=== PATIENT | female | born 1960 | race Caucasian/White ===

== ENCOUNTER 2022-02-23 14:04 | Emergency (ER) | payer OTHER, SELFPAY ==
--- NOTE | 2022-02-23 14:38 | PC.NURSE ---
called pt back, no answer in WR. per registration, pt step out a few min ago.
== END 2022-02-23 15:11 | disposition left against medical advice (07) ==
PROVIDERS: Emergency Provider Emergency Medicine

== ENCOUNTER 2022-04-25 10:36 | Emergency (ER) | payer OTHER, SELFPAY ==
[2022-04-25 10:40] VITALS: BP 147/77; PULSE 80; RESP 15; TEMP 36; O2SAT 97; BMI 23.0
--- NOTE | 2022-04-25 13:47 | ED_ITS ---
HPI - Skin/Abscess/Foreign Bdy <Pierce Galeano PA-C - Last Filed: 04/25/22 14:58> General Chief complaint: Skin/Abscess/Foreign Body Stated complaint: Swelling & rash all over face Time Seen by Provider: 04/25/22 11:59 Source: patient Mode of arrival: Ambulatory Limitations: no limitations History of Present Illness HPI narrative: Patient is a 61-year-old female presents to the emergency room today with complaint redness and swelling to her face this started about 5 days ago. States she 1st noticed redness to start on the right side face around the cheek area that progressed to redness to her entire face yesterday. Last night at 3:00 a.m. she took 3 Benadryl that was given to her by a friend. She then noticed this morning that she had swelling but no below both eyes. Denies any chest pain shortness of breath fever chills nausea vomiting or GI concerns associated with this incident. Works as a patient service representative and can not discern any exposure to any new chemicals. There is a note recall at that using it new headache motion of chemicals the face. Also has never had this happen before. Related Data Previous Rx's Medication Instructions Recorded diphenhydramine HCl 25 mg tablet 25 mg PO TID PRN allergic reaction 04/25/22 (Allergy) #15 tabs prednisone 10 mg tablets in a dose 10 mg PO DAILY #15 ea 04/25/22 pack Allergies Allergy/AdvReac Type Severity Reaction Status Date / Time penicillamine Allergy Verified 04/25/22 10:40 Review of Systems <Pierce Galeano PA-C - Last Filed: 04/25/22 14:58> Review of Systems Narrative: R.O.S.: General: No fever, chills or fatigue. Cardiovascular: No chest pain or palpitations Respiratory: No S.O.B. HEENT: No congestion, ear pain, rhinorrhea, sore throat or tinnitus Gastrointestinal: No nausea or vomiting : No urinary concerns Skin: Redness and swelling to face. Musculoskeletal: No pain in muscles or joints, no limitation of range of motion, no paresthesia or numbness. ?? Neurological: Awake, alert and in not apparent distress. No Headaches, changes in vision or other related neurological concerns. Patient History <Pierce Galeano PA-C - Last Filed: 04/25/22 14:58> Social History Smoking Status: Current every day smoker Smoking Status: Current every day smoker tobacco type: vaping alcohol intake frequency: holidays/special occasions only Substance Use Type: does not use Exam <MARY Echols Last Filed: 04/25/22 14:58> Narrative Exam Narrative: Physical Exam: ? General: normal appearance, well developed, well nourished, alert, and awake. Not in acute distress. ? Head: Normocephalic, no lesions. Chest: Lungs CTAB, no rales, rhonchi or wheezes. ?? Heart: RRR, no murmurs, rubs or gallops. Eyes: PERRLA, EOM's full, conjunctivae clear. ? Neuro: Physiological, no localizing findings, CN3-12 intact. ?? Extremities: Warm, well perfused, FROM, no deformities, no edema. ?? Skin: The patient has diffuse erythema to the entire face. Patient also nontender some swelling to the inferior areas of both eyes. Erythema and swelling are all nontender. ? PSYCHIATRIC: The mood is good, no blunted affect. Speech is clear. Thought process is linear, thought content is appropriate. The voice is without significant inflection. Gastrointestinal: Soft; NT; ND; Pos BS with Neg. rebound tenderness. No scars or major deformities noted on Visual Inspection. Initial Vital Signs Initial Vital Signs: Vital Signs Temperature 96.8 F L 04/25/22 10:40 Pulse Rate 80 04/25/22 10:40 Respiratory Rate 15 04/25/22 10:40 Blood Pressure 147/77 H 04/25/22 10:40 Pulse Oximetry 97 04/25/22 10:40 Oxygen Delivery Method 04/25/22 10:40 <Uriah De La Torre DO - Last Filed: 04/25/22 15:14> Initial Vital Signs Initial Vital Signs: Vital Signs Temperature 96.8 F L 04/25/22 10:40 Pulse Rate 80 04/25/22 10:40 Respiratory Rate 15 04/25/22 10:40 Blood Pressure 147/77 H 04/25/22 10:40 Pulse Oximetry 97 04/25/22 10:40 Oxygen Delivery Method 04/25/22 10:40 Course <Pierce Galeano PA-C - Last Filed: 04/25/22 14:58> Orders Ordered: ED Orders 04/25/22 14:14 CBC Auto Diff [Complete Blood Count AUTO DIFF] Stat CMP [Comprehensive Metabolic Panel] Stat Vital Signs Vital signs: Vital Signs - 8 hr 04/25/22 10:40 Temperature 96.8 F L Pulse Rate 80 Respiratory Rate 15 Blood Pressure 147/77 H Pulse Oximetry 97 Oxygen Delivery Method Room Air <Uriah De La Torre DO - Last Filed: 04/25/22 15:14> Orders Ordered: ED Orders 04/25/22 14:14 CBC Auto Diff [Complete Blood Count AUTO DIFF] Stat CMP [Comprehensive Metabolic Panel] Stat Vital Signs Vital signs: Vital Signs - 8 hr 04/25/22 10:40 Temperature 96.8 F L Pulse Rate 80 Respiratory Rate 15 Blood Pressure 147/77 H Pulse Oximetry 97 Oxygen Delivery Method Room Air MDM - Skin/Abscess/Foreign Bdy <Pierce Galeano PA-C - Last Filed: 04/25/22 14:58> Lab Data Result diagrams: 04/25/22 14:14 04/25/22 14:14 Labs: Lab Results 04/25/22 04/25/22 Range/Units 14:14 14:14 WBC 4.8 (4.5-11.0) X10^3/uL RBC 3.66 L (4.0-5.2) X10^6/uL Hgb 13.4 (12.0-16.0) g/dL Hct 38.7 (36-46) % MCV 105.7 H (80-100) fL MCH 36.6 H (26-34) PG MCHC 34.6 (30-36) % RDW 12.5 (11.6-14.8) % Plt Count 230 (150-400) X10^3/uL Neut % (Auto) 43.8 L (50-75) % Lymph % (Auto) 43.5 H (25-40) % [place] % (Auto) 10.5 (3-14) % Eos % (Auto) 1.5 L (2-4) % Baso % (Auto) 0.7 (0-2) % Neut # (Auto) 2100 (1122-6558) /uL Lymph # (Auto) 2100 (6408-6208) /uL [place] # (Auto) 500 (0-900) /uL Eos # (Auto) 100 (0-450) /uL Baso # (Auto) 0 (0-100) /uL Sodium 142 (137-145) mmol/L Potassium 4.3 (3.4-5.1) mmol/L Chloride 102 (98-107) mmol/L Carbon Dioxide 25 (22-32) mmol/L BUN 11 (7-17) mg/dL Creatinine 0.46 L (0.52-1.04) mg/dL Estimated GFR > 60 (>60) mL/min BUN/Creatinine Ratio 23.9 H (6-22) Glucose 97 (70-100) mg/dL Calcium 9.2 (8.4-10.2) mg/dL Total Bilirubin 0.4 (0.2-1.3) mg/dL AST 86 H (14-36) IU/L ALT 66 H (<35) IU/L Alkaline Phosphatase 102 (38-126) U/L Total Protein 8.3 H (6.3-8.2) g/dL Albumin 4.9 (3.5-5.0) g/dL Globulin 3.4 (1.7-4.1) g/dL Albumin/Globulin Ratio 1.4 (1.0-2.8) Urine Dip Bedside Urine Glucose Negative Bedside Urine Bilirubin - Negative Bedside Urine Ketone - Negative Urine Specific [place] 1.015 Bedside Urine Occult Blood - Negative Bedside Urine pH 6.0 Bedside Urine Protein - Negative Bedside Urine Urobilinogen - Negative Bedside Urine Nitrite - Negative Bedside Urine Leukocytes - Negative Esterase MDM Narrative Medical decision making narrative: Patient is a 61-year-old female presents to the emergency room today with comp laint redness and swelling 2 days. HPI seems to be consistent with possible contact dermatitis but can not completely rule out some other infection. Additional labs ordered to rule out item number burning urine. If additional labs are now plan is to discharge patient with Benadryl and prednisone. Patient agrees with this plan. <Uriah De La Torre, DO - Last Filed: 04/25/22 15:14> Lab Data Labs: Lab Results 04/25/22 04/25/22 Range/Units 14:14 14:14 WBC 4.8 (4.5-11.0) X10^3/uL RBC 3.66 L (4.0-5.2) X10^6/uL Hgb 13.4 (12.0-16.0) g/dL Hct 38.7 (36-46) % MCV 105.7 H (80-100) fL MCH 36.6 H (26-34) PG MCHC 34.6 (30-36) % RDW 12.5 (11.6-14.8) % Plt Count 230 (150-400) X10^3/uL Neut % (Auto) 43.8 L (50-75) % Lymph % (Auto) 43.5 H (25-40) % [place] % (Auto) 10.5 (3-14) % Eos % (Auto) 1.5 L (2-4) % Baso % (Auto) 0.7 (0-2) % Neut # (Auto) 2100 (8989-2175) /uL Lymph # (Auto) 2100 (3269-6369) /uL [place] # (Auto) 500 (0-900) /uL Eos # (Auto) 100 (0-450) /uL Baso # (Auto) 0 (0-100) /uL Sodium 142 (137-145) mmol/L Potassium 4.3 (3.4-5.1) mmol/L Chloride 102 (98-107) mmol/L Carbon Dioxide 25 (22-32) mmol/L BUN 11 (7-17) mg/dL Creatinine 0.46 L (0.52-1.04) mg/dL Estimated GFR > 60 (>60) mL/min BUN/Creatinine Ratio 23.9 H (6-22) Glucose 97 (70-100) mg/dL Calcium 9.2 (8.4-10.2) mg/dL Total Bilirubin 0.4 (0.2-1.3) mg/dL AST 86 H (14-36) IU/L ALT 66 H (<35) IU/L Alkaline Phosphatase 102 (38-126) U/L Total Protein 8.3 H (6.3-8.2) g/dL Albumin 4.9 (3.5-5.0) g/dL Globulin 3.4 (1.7-4.1) g/dL Albumin/Globulin Ratio 1.4 (1.0-2.8) Urine Dip Bedside Urine Glucose Negative Bedside Urine Bilirubin - Negative Bedside Urine Ketone - Negative Urine Specific Lovely 1.015 Bedside Urine Occult Blood - Negative Bedside Urine pH 6.0 Bedside Urine Protein - Negative Bedside Urine Urobilinogen - Negative Bedside Urine Nitrite - Negative Bedside Urine Leukocytes - Negative Esterase Discharge Plan Departure Patient Disposition: Home Clinical Impression: Contact dermatitis Instructions: Contact Dermatitis Prescriptions: New prednisone 10 mg tablets,dose pack 10 mg PO DAILY Qty: 15 0RF Rx Instructions: Take 5 tablets on day 1, 4 tablets on day 2, 3 tablets on day 3, 2 tablets on day 4 and 1 tablet on day 5. diphenhydramine HCl [Allergy] 25 mg tablet 25 mg PO TID PRN (Reason: allergic reaction) Qty: 15 0RF Visit Report Forms: Patient Portal/API <Uriah De La Torre, DO - Last Filed: 04/25/22 15:14> Cosign ED Attending Cosignature Attestation: Dr De La Torre Co-Sign Statement: I was available for consultation during this patient's emergency department visit. This chart is signed by myself for admini strative purposes only. I did not have direct contact with this patient during this visit. They were seen independently by the APC.
[2022-04-25 14:24] LABS: Add Manual Diff / Slide Review NO; Basophils Absolute Auto 0 /uL (0-100); Basophils Percent Auto 0.7 % (0-2); Eosinophils Absolute Auto 100 /uL (0-450); Eosinophils Percent Auto 1.5 % (2-4); Hematocrit 38.7 % (36-46); Hemoglobin 13.4 g/dL (12.0-16.0); Lymphocytes Absolute Auto 2100 /uL (1100-4500); Lymphocytes Percent Auto 43.5 % (25-40); Mean Corpuscular HGB Conc 34.6 % (30-36); Mean Corpuscular Hemoglobin 36.6 PG (26-34); Mean Corpuscular Volume 105.7 fL (80-100); Monocytes Absolute Auto 500 /uL (0-900); Monocytes Percent Auto 10.5 % (3-14); Neutrophils Absolute Auto 2100 /uL (1500-7000); Neutrophils Percent Auto 43.8 % (50-75); Platelet Count 230 X10^3/uL (150-400); Red Blood Cell Count 3.66 X10^6/uL (4.0-5.2); Red Cell Distribution Width 12.5 % (11.6-14.8); White Blood Cell Count 4.8 X10^3/uL (4.5-11.0)
[2022-04-25 14:42] LABS: Alanine Aminotransferase 66 IU/L (<35); Albumin 4.9 g/dL (3.5-5.0); Albumin Globulin Ratio 1.4 (1.0-2.8); Alkaline Phosphatase 102 U/L (38-126); Aspartate Aminotransferase 86 IU/L (14-36); BUN Creatinine Ratio 23.9 (6-22); Bilirubin Total 0.4 mg/dL (0.2-1.3); Blood Urea Nitrogen 11 mg/dL (7-17); Calcium 9.2 mg/dL (8.4-10.2); Carbon Dioxide 25 mmol/L (22-32); Chloride 102 mmol/L (98-107); Estimated Glomerular Filt Rate > 60 mL/min (>60); Globulin 3.4 g/dL (1.7-4.1); Glucose 97 mg/dL (70-100); HEMOLYSIS < 15 (0-50); Potassium 4.3 mmol/L (3.4-5.1); Sodium 142 mmol/L (137-145); Total Protein 8.3 g/dL (6.3-8.2)
== END 2022-04-25 15:02 | disposition home or self-care (01) ==
PROVIDERS: Emergency Provider Physician Assistant
DX: L25.9 Unspecified contact dermatitis, unspecified cause (principal)
CPT/HCPCS: 36415; 80053; 81003; 85025; 99283

== ENCOUNTER 2023-02-25 17:33 | Emergency (ER) | payer OTHER, MEDICAID, SELFPAY ==
[2023-02-25 17:41] VITALS: BP 172/89; PULSE 75; RESP 19; TEMP 36.3; O2SAT 96; BMI 23.0
[2023-02-25] MEDS: TET,DIPH,PERTUSS(ACELL),VAC/PF 0.5 ML SYRINGE IM (19:11)
--- NOTE | 2023-02-25 19:13 | PC.NURSE ---
Wound cleaned with CHG and water. Temp dressing with petroleum gauze and 4x4s and coban
[2023-02-25] MEDS: IBUPROFEN 400 MG TABLET PO (23:01)
[2023-02-25] MEDS: ACETAMINOPHEN 325 MG TABLET PO (23:01)
[2023-02-25] MEDS: LIDOCAINE 1% 20 ML (23:02)
--- NOTE | 2023-02-25 23:12 | ED.WOUNDLAC ---
HPI - Wound/Laceration General Chief Complaint: Wound/Laceration Stated Complaint: fell down stairs needs stitches left leg Time Seen by Provider: 02/25/23 22:44 Source: patient Mode of arrival: Family Vehicle History of Present Illness HPI narrative: 62-year-old woman with essential tremor was caring something in her arms when she miss stepped fell forward scraping the left anterior since sustaining a laceration. She did not have any other abnormalities or injuries. She comes in for further evaluation. There is no history of diabetes Related Data Previous Rx's Medication Instructions Recorded diphenhydramine HCl 25 mg tablet 25 mg PO TID PRN allergic reaction 04/25/22 (Allergy) #15 tabs prednisone 10 mg tablets in a dose 10 mg PO DAILY #15 ea 04/25/22 pack Allergies Allergy/AdvReac Type Severity Reaction Status Date / Time Penicillins Allergy Severe Swelling Verified 02/25/23 17:41 of Lip/Tongue/Throat Review of Systems Review of Systems Narrative: Pertinent positive and negative findings as per HPI Patient History Medical History (Updated 02/25/23 @ 23:19 by Socorro Lopez MD) Essential tremor Social History Smoking Status: Current every day smoker Smoking Status: Current every day smoker tobacco type: vaping alcohol intake frequency: 0-2 drinks per day Alcohol type: wine Substance Use Type: does not use Exam Initial Vital Signs Initial Vital Signs: Vital Signs Temperature 97.4 F L 02/25/23 17:41 Pulse Rate 75 02/25/23 17:41 Respiratory Rate 19 02/25/23 17:41 Blood Pressure 172/89 H 02/25/23 17:41 Pulse Oximetry 96 02/25/23 17:41 Oxygen Delivery Method Room Air 02/25/23 17:41 General: Alert appropriate in no acute distress Respiratory: Able to speak in full sentences, no obvious respiratory distress Skin: No obvious rashes, warm and dry Neurologic: Grossly intact no obvious asymmetries or abnormalities Psych: appropriate insight and affect, cooperative Extremity: Left anterior betancur with a 7 cm flap laceration that goes to the fascial layer but not through it. There is some minor abrasion distal to the laceration Procedures Laceration Repair Left betancur: Time of procedure: 23:14 Site: lower extremity Side (If applicable): left Size (cm): 14 Description: flap Depth: simple, single layer Local Anesthetic: lidocaine 1% Amount of anesthesia used (mL): 5 Pre-repair: wound explored, irrigated extensively and deep structures intact Skin layer closed with: nylon Skin layer suture size: 4-0 Number of sutures: 7 Technique: horizontal mattress and other (Horizontal mattress used to reapproximate midportion of the flap and close the space. Steri-Strips were used at the very thin outer edges of the flap) Course Orders Ordered: Discontinued Medications Acetaminophen (Acetaminophen 325 Mg Tablet) 325 mg PO NOW ONE Stop: 02/25/23 22:48 Last Admin: 02/25/23 23:01 Dose: 325 mg Documented By: JANNA Diphtheria/Tetanus/Acell Pertussis (Tet,Diph,Pertuss(Acell),Vac/Pf 0.5 Ml Syringe) 0.5 ml IM .ONCE ONE Stop: 02/25/23 17:49 Last Admin: 02/25/23 19:11 Dose: 0.5 ml Documented By: LAMIN Ibuprofen (Ibuprofen 400 Mg Tablet) 400 mg PO NOW ONE Stop: 02/25/23 22:48 Last Admin: 02/25/23 23:01 Dose: 400 mg Documented By: JANAN Vital Signs Vital signs: Vital Signs - 8 hr 02/25/23 17:41 Temperature 97.4 F L Pulse Rate 75 Respiratory Rate 19 Blood Pressure 172/89 H Pulse Oximetry 96 Oxygen Delivery Method Room Air MDM - Wound/Laceration MDM Narrative Medical decision making narrative: CC: Stumbled with left betancur abrasion and laceration Complicating co-morbidities: Essential tremor Data collected from: patient, Differential considered: Superficial, deep, fascial layers involved bone involvement Exam documented above, pertinent findings include: 7 cm flap almost V shaped to fascia underlying but not perforating the fascia. Bleeding is controlled Treatments: The wound is sutured and dressed appropriately, Tdap is given Discussion: 62-year-old woman with abrasion to the left anterior betancur. Repaired with both suture and Steri-Strips. Reviewed signs and symptoms of infection, anticipated course of recovery, recommended Tylenol ibuprofen and elevation as needed. She is safe for discharge Discharge Plan Departure Patient Disposition: Home Clinical Impression: Laceration Instructions: DI for Laceration Repair Activity Restrictions/Additional Instructions: Thank you for coming in today This was a big cut but fortunately it did not go into the muscle. The majority of it was sutured together and then I used the Steri-Strips on top to hold thin edges of the skin down. The Steri-Strips will start to peel off over the next couple of days. As they peel up trim the edges but try to leave them in place for as long as possible. The sutures themselves will need to come out on or about March 07 If you notice increasing redness, swelling, streaking, discharge or any other signs of infection you do need to return to the emergency department Prescriptions: No Action prednisone 10 mg tablets,dose pack 10 mg PO DAILY Qty: 15 0RF Rx Instructions: Take 5 tablets on day 1, 4 tablets on day 2, 3 tablets on day 3, 2 tablets on day 4 and 1 tablet on day 5. diphenhydramine HCl [Allergy] 25 mg tablet 25 mg PO TID PRN (Reason: allergic reaction) Qty: 15 0RF Stand Alone Forms: Patient Portal/API
[2023-02-25 23:13] VITALS: BP 148/74; PULSE 69; RESP 16; O2SAT 96
== END 2023-02-25 23:27 | disposition home or self-care (01) ==
PROVIDERS: Emergency Provider Emergency Medicine
DX: S81.812A Laceration without foreign body, left lower leg, initial encounter (principal); W10.9XXA Fall (on) (from) unspecified stairs and steps, initial encounter; Z23 Encounter for immunization
CPT/HCPCS: 12005; 90471; 99283; 99284; 90715

== ENCOUNTER → 2023-03-09 17:00 | Outpatient (CLI) | payer OTHER, MEDICAID, SELFPAY | PROVIDERS: Visit Provider Physician Assistant | DX: L08.9 Local infection of the skin and subcutaneous tissue, unspecified (principal); S81.812A Laceration without foreign body, left lower leg, initial encounter | CPT/HCPCS: 87070; 87075; 87147; 87205 ==

== ENCOUNTER → 2023-04-14 16:02 | Outpatient (CLI) | payer OTHER, MEDICAID, SELFPAY ==
[2023-04-14 17:37] LABS: Add Manual Diff / Slide Review NO; Basophils Absolute Auto 100 /uL (0-100); Eosinophils Absolute Auto 0 /uL (0-450); Eosinophils Percent Auto 0.8 % (2-4); Hematocrit 39.3 % (36-46); Hemoglobin 13.4 g/dL (12.0-16.0); Lymphocytes Absolute Auto 2000 /uL (1100-4500); Lymphocytes Percent Auto 44.9 % (25-40); Mean Corpuscular HGB Conc 34.2 % (30-36); Mean Corpuscular Hemoglobin 36.9 PG (26-34); Monocytes Absolute Auto 500 /uL (0-900); Monocytes Percent Auto 11.9 % (3-14); Neutrophils Absolute Auto 1800 /uL (1500-7000); Neutrophils Percent Auto 40.4 % (50-75); Platelet Count 178 X10^3/uL (150-400); Red Blood Cell Count 3.64 X10^6/uL (4.0-5.2); Red Cell Distribution Width 12.2 % (11.6-14.8); White Blood Cell Count 4.4 X10^3/uL (4.5-11.0)
[2023-04-14 17:49] LABS: Hemoglobin A1C% w Est Avg Glu 5.1 % (4.0-6.0)
[2023-04-14 17:50] LABS: Alanine Aminotransferase 68 IU/L (<35); Albumin 5.1 g/dL (3.5-5.0); Albumin Globulin Ratio 1.5 (1.0-2.8); Alkaline Phosphatase 95 U/L (38-126); Aspartate Aminotransferase 90 IU/L (14-36); BUN Creatinine Ratio 20.8 (6-22); Bilirubin Total 0.8 mg/dL (0.2-1.3); Blood Urea Nitrogen 10 mg/dL (7-17); Calcium 10.3 mg/dL (8.4-10.2); Carbon Dioxide 27 mmol/L (22-32); Chloride 97 mmol/L (98-107); Estimated Glomerular Filt Rate > 60 mL/min (>60); Globulin 3.5 g/dL (1.7-4.1); Glucose 94 mg/dL (80-110); HDL Cholesterol 110 mg/dL (40-60); HEMOLYSIS < 15 (0-50); Potassium 4.5 mmol/L (3.4-5.1); Sodium 139 mmol/L (137-145); Total Protein 8.6 g/dL (6.3-8.2); Triglycerides 117 mg/dL (35-150)
[2023-04-14 18:02] LABS: Cholesterol 371 mg/dL (140-199); LDL Cholesterol Calculated 238 mg/dL (<100)
[2023-04-14 18:56] LABS: Folate 7.2 ng/mL (2.76-20.0); Vitamin B12 897 pg/mL (239-931)
[2023-04-14 19:26] LABS: Free T4, Direct Thyroxine 0.66 ng/dL (0.78-2.19)
[2023-04-14 20:01] LABS: Creatinine Urine Random 71.5 mg/dL
[2023-04-14 20:06] LABS: Microalbumi Creatinin Ratio Ur 41.9 ug/mg CR (<30)
[2023-04-17 16:57] LABS: HIV 1 & 2 Ab/Ag 4th Gen Combo NEGATIVE (NEGATIVE); Hep C Virus Ab w/Reflex Quant NEGATIVE s/c (NEGATIVE)
== END ==
PROVIDERS: PCP Family Medicine; Referring Provider Family Medicine; Visit Provider Family Medicine
DX: Z85.118 Personal history of other malignant neoplasm of bronchus and lung (principal); I10 Essential (primary) hypertension; F10.90 Alcohol use, unspecified, uncomplicated; Z11.4 Encounter for screening for human immunodeficiency virus [HIV]; E03.9 Hypothyroidism, unspecified; Z11.59 Encounter for screening for other viral diseases
CPT/HCPCS: 36415; 80053; 80061; 82043; 82570; 82607; 82746; 83036; 84439; 84443; 85025; 86803; 87389

== ENCOUNTER → 2023-04-22 14:30 | Outpatient (CLI) | payer OTHER, MEDICAID, SELFPAY ==
--- NOTE | 2023-04-22 14:47 | DI.CT.S_ITS ---
PROCEDURE: CT CHEST W CON INDICATIONS: H/o R side lung cancer s/p lobectomy TECHNIQUE: After the administration of intravenous contrast, 5 mm thick sections acquired from the pulmonary apices to the posterior costophrenic angles. 1 mm axial lung, 5 mm thick coronal and sagittal reformats and 7 mm axial MIP were acquired. For radiation dose reduction, the following was used: automated exposure control, adjustment of mA and/or kV according to patient size. COMPARISON: None. FINDINGS: Image quality: Excellent. Lungs and pleura: Status post right lower lobectomy. There is scarring at the right base which is likely postsurgical in etiology. Biapical pleuroparenchymal scarring. No pleural effusions or pneumothorax. There is an 8 mm nodular ground-glass opacity in the right upper lobe (3/99). Mediastinum: Heart size is normal. No pericardial effusion. No mediastinal or hilar adenopathy by size criteria. Thoracic aorta and central pulmonary arteries are normal in size. Esophagus is normal in caliber. No hiatal hernia. Bones and chest wall: No suspicious bony lesions. No vertebral body compression fractures. Breast implants in place. No axillary or supraclavicular adenopathy by size criteria. Thyroid gland is within normal limits . Abdomen: Decreased attenuation of liver, consistent with hepatic steatosis. Upper abdominal bowel loops are normal in caliber. IMPRESSION: 1. Postsurgical changes from right lower lobectomy. There is scarring at the right base. 2. There is a mm nodular ground-glass opacity within the right upper lobe. Recommend comparison to prior imaging if available and attention on follow-up. 3. No mediastinal lymphadenopathy. Dictated by: Riki Casey M.D. on 04/22/2023 at 15:42 Approved by: Riki Casey M.D. on 04/22/2023 at 15:50
== END ==
PROVIDERS: PCP Family Medicine; Referring Provider Family Medicine; Visit Provider Family Medicine
DX: Z85.118 Personal history of other malignant neoplasm of bronchus and lung (principal); Z08 Encounter for follow-up examination after completed treatment for malignant neoplasm
CPT/HCPCS: 71260

== ENCOUNTER → 2023-12-11 13:31 | Outpatient (CLI) | payer OTHER, MEDICAID, SELFPAY ==
[2023-12-11 21:04] LABS: Cholesterol 204 mg/dL (140-199); HDL Cholesterol 67 mg/dL (40-60); LDL Cholesterol Calculated 108 mg/dL (<100); Triglycerides 147 mg/dL (35-150)
[2023-12-12 14:02] LABS: TSH w/ Reflex to FT4 2.22 uIU/mL (0.47-4.68)
== END ==
PROVIDERS: PCP Family Medicine; Referring Provider Family Medicine; Visit Provider Family Medicine
DX: E78.5 Hyperlipidemia, unspecified (principal); E03.9 Hypothyroidism, unspecified
CPT/HCPCS: 36415; 80061; 84443

== ENCOUNTER → 2024-02-20 10:57 | Outpatient (CLI) | payer OTHER, MEDICAID, SELFPAY ==
[2024-02-20 11:59] LABS: Add Manual Diff / Slide Review NO; Basophils Absolute Auto 100 /uL (0-100); Basophils Percent Auto 0.9 % (0-2); Eosinophils Absolute Auto 100 /uL (0-450); Eosinophils Percent Auto 1.1 % (2-4); Hematocrit 36.8 % (36-46); Hemoglobin 12.4 g/dL (12.0-16.0); Lymphocytes Absolute Auto 1700 /uL (1100-4500); Lymphocytes Percent Auto 25.4 % (25-40); Mean Corpuscular HGB Conc 33.8 % (30-36); Mean Corpuscular Hemoglobin 35.9 PG (26-34); Mean Corpuscular Volume 106.3 fL (80-100); Monocytes Absolute Auto 700 /uL (0-900); Monocytes Percent Auto 10.4 % (3-14); Neutrophils Absolute Auto 4300 /uL (1500-7000); Neutrophils Percent Auto 62.2 % (50-75); Platelet Count 246 X10^3/uL (150-400); Red Blood Cell Count 3.46 X10^6/uL (4.0-5.2); Red Cell Distribution Width 12.2 % (11.6-14.8); White Blood Cell Count 6.9 X10^3/uL (4.5-11.0)
[2024-02-20 12:25] LABS: BUN Creatinine Ratio 16.9 (6-22); Blood Urea Nitrogen 10 mg/dL (7-17); C-Reactive Protein Quant < 0.5 mg/dL (<1.0); Calcium 9.4 mg/dL (8.4-10.2); Carbon Dioxide 25 mmol/L (22-32); Chloride 104 mmol/L (98-107); Estimated Glomerular Filt Rate > 60 mL/min (>60); Glucose 99 mg/dL (80-110); HEMOLYSIS < 15 (0-50); Sodium 137 mmol/L (137-145)
[2024-02-20 12:52] LABS: TSH w/ Reflex to FT4 1.67 uIU/mL (0.47-4.68)
[2024-02-24 17:08] LABS: Tissue Transglutaminase IgA 2 U/mL (0-3); Tissue Transglutaminase IgG 4 U/mL (0-5)
[2024-02-25 13:56] LABS: Occult Blood 1 Negative (Negative)
[2024-03-03 17:12] LABS: Calprotectin, Stool 8 ug/g (0-120)
== END ==
PROVIDERS: PCP Family Medicine; Referring Provider Family Medicine; Visit Provider Family Medicine
DX: R19.7 Diarrhea, unspecified (principal)
CPT/HCPCS: 36415; 80048; 82270; 83516; 83993; 84443; 85025; 86140; 87045; 87177; 87329

== ENCOUNTER → 2024-06-14 14:06 | Outpatient (CLI) | payer OTHER, MEDICAID, SELFPAY ==
--- NOTE | 2024-06-14 14:07 | DI.CT.S_ITS ---
PROCEDURE: CT LUNG LOW DOSE SCREENING INDICATIONS: 30 year smoking hx, h/o lung cancer, pulmonary nodule TECHNIQUE: Noncontrast 2.0-2.5 mm thick sections acquired from the pulmonary apices to the posterior costophrenic angles. 7 mm thick axial MIP, and 5 mm coronal and sagittal reformats were then acquired. For radiation dose reduction, the following was used: automated exposure control, adjustment of mA and/or kV according to patient size. COMPARISON: [facility], CT, CT CHEST W [facility], 04/22/2023, 14:45. FINDINGS: Image quality: Diagnostic. Lower Neck: No enlarged lymph nodes. Thyroid: No thyroid nodules which require sonographic follow up, per consensus guidelines. Axillae: No enlarged lymph nodes. Chest Wall: Breast implants. Bones: No suspicious osseous lesion. Lungs and Pleura: No pneumothorax or pleural effusions. No consolidation or suspicious nodules. Right upper lobe pulmonary nodule or nodular opacity measuring 0.6 cm, (3/99), unchanged. Mild scarring at the right lung base, unchanged. Heart: Heart size is normal. No pericardial effusion. Thoracic Vessels: The aorta and pulmonary arteries demonstrate normal size. Mediastinum and [place]: No enlarged lymph nodes. Esophagus: No wall thickening. No hiatal hernia. Upper Abdomen: Visualized upper abdomen solid organs and bowel loops appear normal. IMPRESSION: No suspicious pulmonary nodules. LUNG-RADS 2; continued annual screening, if eligible. Clinically Significant Non-pulmonary Findings: None. Dictated by: Shashi Gonzales M.D. on 06/15/2024 at 0:53 Approved by: Shashi Gonzales M.D. on 06/15/2024 at 1:00
--- NOTE | 2024-06-14 14:08 | DI.MG.S_ITS ---
BILATERAL DIGITAL SCREENING MAMMOGRAM 3D/2D WITH CAD WITH AUGMENTATION: 06/14/2024 CLINICAL: Routine screening. Comparison is made to exams dated: 10/26/2021 mammogram, 04/04/2020 mammogram, and 10/27/2018 mammogram. The breasts are heterogeneously dense, which may obscure small masses (category c / 51-75% glandular tissue). Current study was also evaluated with a Computer Aided Detection (CAD) system. Bilateral breast implants are stable. No significant masses, calcifications, or other findings are seen in either breast. There has been no significant interval change. IMPRESSION: NEGATIVE There is no mammographic evidence of malignancy. A 1 year screening mammogram is recommended. Based on the Tyrer Cuzick model (a risk assessment model) the patient's lifetime risk is 11.1% and her 10 year risk is 4.9%. According to the ACR, ACS, and NCCN guidelines, an annual breast MRI exam along with mammogram is recommended if the patient's lifetime risk is 20% or greater. This exam was interpreted at Station ID: [id number]. NOTE: For mammograms, a report in lay terms will be sent to the patient. Approximately 15% of breast malignancies will not be visualized mammographically. In the management of a palpable breast mass, a negative mammogram must not discourage biopsy of a clinically suspicious lesion. Electronically Signed By: Tino guerrero/rigo:07/02/2024 15:40:40 letter sent: Normal Exam ACR BI-RADS Category 1: Negative
== END ==
PROVIDERS: PCP Family Medicine; Referring Provider Family Medicine; Visit Provider Family Medicine
DX: Z12.2 Encounter for screening for malignant neoplasm of respiratory organs (principal); R91.1 Solitary pulmonary nodule; Z87.891 Personal history of nicotine dependence; R92.333 Mammographic heterogeneous density, bilateral breasts; Z12.31 Encounter for screening mammogram for malignant neoplasm of breast; Z85.118 Personal history of other malignant neoplasm of bronchus and lung
CPT/HCPCS: 71271; 77063; 77067

== ENCOUNTER → 2024-08-14 10:10 | Outpatient (CLI) | payer OTHER, MEDICAID, SELFPAY ==
[2024-08-14 11:04] LABS: Add Manual Diff / Slide Review NO; Basophils Absolute Auto 100 /uL (0-100); Basophils Percent Auto 1.1 % (0-2); Eosinophils Absolute Auto 100 /uL (0-450); Eosinophils Percent Auto 1.4 % (2-4); Hematocrit 41.1 % (36-46); Hemoglobin 13.9 g/dL (12.0-16.0); Lymphocytes Absolute Auto 1500 /uL (1100-4500); Lymphocytes Percent Auto 20.7 % (25-40); Mean Corpuscular HGB Conc 33.7 % (30-36); Mean Corpuscular Hemoglobin 34.8 PG (26-34); Mean Corpuscular Volume 103.1 fL (80-100); Monocytes Absolute Auto 600 /uL (0-900); Monocytes Percent Auto 8.4 % (3-14); Neutrophils Absolute Auto 4900 /uL (1500-7000); Neutrophils Percent Auto 68.4 % (50-75); Platelet Count 252 X10^3/uL (150-400); Red Blood Cell Count 3.99 X10^6/uL (4.0-5.2); Red Cell Distribution Width 12.5 % (11.6-14.8); White Blood Cell Count 7.2 X10^3/uL (4.5-11.0)
[2024-08-14 12:07] LABS: Alanine Aminotransferase 26 IU/L (<35); Albumin 4.5 g/dL (3.5-5.0); Alkaline Phosphatase 84 U/L (38-126); Aspartate Aminotransferase 28 IU/L (14-36); BUN Creatinine Ratio 28.3 (6-22); Blood Urea Nitrogen 17 mg/dL (7-17); Calcium 9.9 mg/dL (8.4-10.2); Carbon Dioxide 29 mmol/L (22-32); Chloride 102 mmol/L (98-107); Cholesterol 192 mg/dL (140-199); Estimated Glomerular Filt Rate > 60 mL/min (>60); Globulin 2.2 g/dL (1.7-4.1); Glucose 111 mg/dL (80-110); HDL Cholesterol 36 mg/dL (40-60); HEMOLYSIS < 15 (0-50); LDL Cholesterol Calculated 123 mg/dL (<100); Potassium 4.5 mmol/L (3.4-5.1); Sodium 136 mmol/L (137-145); Total Protein 6.7 g/dL (6.3-8.2); Triglycerides 166 mg/dL (35-150)
[2024-08-14 12:43] LABS: Microalbumin Urine Random < 0.6 mg/dL (0-1.6)
[2024-08-14 12:59] LABS: Vitamin B12 Reflex MMA if <400 306 pg/mL (239-931)
== END ==
PROVIDERS: PCP Family Medicine; Referring Provider Family Medicine; Visit Provider Family Medicine
DX: I10 Essential (primary) hypertension (principal); R80.9 Proteinuria, unspecified; E78.5 Hyperlipidemia, unspecified; F10.90 Alcohol use, unspecified, uncomplicated; Z85.118 Personal history of other malignant neoplasm of bronchus and lung; R91.1 Solitary pulmonary nodule
CPT/HCPCS: 36415; 80053; 80061; 82043; 82570; 82607; 83921; 85025

== ENCOUNTER → 2024-08-17 16:35 | Outpatient (CLI) | payer OTHER, SELFPAY ==
--- NOTE | 2024-08-17 16:36 | DI.RAD.S_ITS ---
PROCEDURE: XR SHOULDER LT MIN 2V INDICATIONS: left shoulder pain TECHNIQUE: 3 views of the shoulder were acquired. COMPARISON: None. FINDINGS: Bones: No fractures or dislocations. No suspicious bony lesions. Visualized ribs appear intact. Soft tissues: No suspicious soft tissue calcifications. Partially visualized thorax demonstrates no acute pulmonary pathology. Cardiomegaly noted. IMPRESSION: No acute bony abnormality. Dictated by: Ronnie Lo M.D. on 08/18/2024 at 16:55 Approved by: Ronnie Lo M.D. on 08/18/2024 at 16:57
[2024-08-17 18:15] LABS: Hemoglobin A1C% w Est Avg Glu 5.4 % (4.0-6.0)
[2024-08-17 20:18] LABS: Folate 5.5 ng/mL (2.76-20.0)
== END ==
PROVIDERS: PCP Family Medicine; Referring Provider Family Medicine; Visit Provider Family Medicine
DX: M25.512 Pain in left shoulder (principal); D75.89 Other specified diseases of blood and blood-forming organs; R73.01 Impaired fasting glucose
CPT/HCPCS: 36415; 73030; 82746; 83036

== ENCOUNTER 2025-02-15 08:17 | Day surgery (SDC) | payer OTHER, SELFPAY ==
[2025-02-15 08:37] VITALS: BP 149/88; PULSE 78; RESP 16; TEMP 36.5; O2SAT 95
--- NOTE | 2025-02-15 09:07 | PM.PREOP ---
Pre-operative Note Interval Note History & Physical reviewed/Exam performed by Physician: Yes Changes to H&P: No ASA Class (for procedural sedation): I
--- NOTE | 2025-02-15 09:09 | PM.OP.COLON ---
Operative Date/Time/Diagnoses Date of procedure: 02/15/25 Time of procedure: 09:37 Pre-op diagnosis: Needs screening colonoscopy Post-op diagnosis: same Procedure & Clinicians Study performed: Colonoscopy Same procedure(s) as scheduled: Yes Indications: 64yo F, due for screening colonoscopy Surgeon: Bayron Gonsalez Anesthesia Type: MAC +/- Procedure Notes SCOAP/Timeout: Performed Procedure in detail: Colonoscopy Patient placed in left lateral recumbent position. Time out was performed. Procedural sedation was administered by anesthesia. Examination began with a thorough inspection of the perianal area. There was no evidence of fissures, fistulae, external hemorrhoids or cutaneous malignancy. The colonoscope was then placed into the rectum and the lumen was insufflated with carbon dioxide. The scope was carefully advanced forward. Ultimately the cecum was intubated and confirmed by identification of the ileocecal valve, the appendiceal orifice and the confluence of the taenia. The scope was then slowly withdrawn examining the colon thoroughly in all directions. In the rectum, retroflexion of the scope was performed for inspection of the distal rectum and anal canal. ?Significant colonoscopy findings: ?1. Quality of the preparation-good, [place] 2-3, mod amount liquid stool, suctioned completely to facilitate mucosal evaluation ?2. Several AVMs in rectosigmoid, non-bleeding 3. No polyps, diverticulosis Scope withdrawal time: 13 minutes Findings: other findings (AVMs) Complications: none Post-procedure Recommendations: Colonoscopy in 10 years Follow up: as needed Disposition: PACU
[2025-02-15 09:38] VITALS: BP 137/68; PULSE 75; RESP 22; TEMP 36.1; O2SAT 98
[2025-02-15 09:40] VITALS: BP 133/67; PULSE 75; RESP 22; O2SAT 98
[2025-02-15 09:45] VITALS: BP 149/74; PULSE 74; RESP 22; TEMP 36.2; O2SAT 97
== END 2025-02-15 09:50 | disposition home or self-care (01) ==
PROVIDERS: PCP Family Medicine; Referring Provider Family Medicine; Visit Provider Surgery
PROC: 0DJD8ZZ Inspection of Lower Intestinal Tract, Via Natural or Artificial Opening Endoscopic (ICD-10-PCS; CPT 45378; principal; 2025-02-15 09:30)
DX: Z12.11 Encounter for screening for malignant neoplasm of colon (principal); K55.20 Angiodysplasia of colon without hemorrhage
CPT/HCPCS: 45378; J2704